=== PATIENT | male | born 1960 | race Caucasian/White ===

== ENCOUNTER 2021-10-09 10:00 | Inpatient (IN) | payer SELFPAY ==
[2021-10-09] MEDS ORDERED: Iopamidol-370 76% 500 ML 1 ML ONE (10:03)
[2021-10-09 11:28] LABS: #Lymphocytes 1.5 thou/uL (1.20-3.40); #Monocytes 0.7 thou/uL (0.11-0.59); #Neutrophils 8.9 thou/uL (1.40-6.50); %Basophils 0.4 % (0.0-1.0); %Eosinophils 0.4 % (0.0-10.0); %Lymphocytes 12.9 % (21.0-51.0); %Monocytes 6.5 % (0.0-10.0); %Neutrophils 79.8 % (42.0-75.0); Hemoglobin 12.5 g/dL (14.0-18.0); Mean Corpuscular HGB CONC 33.2 g/dL (32.0-36.0); Mean Corpuscular Hemoglobin 30.9 pg (27.0-31.0); Mean Corpuscular Volume 93.1 fL (78.0-98.0); Mean Platelet Volume 7.5 fL (7.4-10.4); Platelet Count 294 thou/uL (130-400); RBC Distribution Width 11.9 % (11.5-14.5); Red Blood Cell (RBC) Count 4.04 mill/uL (4.70-6.10); White Blood Cell (WBC) Count 11.2 thou/uL (4.8-10.8)
[2021-10-09 11:54] LABS: ALT (SGPT) 13 U/L (8-55); AST (SGOT) 15 U/L (5-34); Albumin 4.2 g/dL (3.4-4.8); Alkaline Phosphatase 81 U/L (40-110); Anion Gap 12 mmol/L (10-20); BUN (Urea Nitrogen) 14 mg/dL (8.4-25.7); Bilirubin, Total 0.4 mg/dL (0.2-1.2); Calc. Creatinine Clearance 0 mL/min (70-130); Calcium 8.9 mg/dL (7.8-10.44); Carbon Dioxide 25 mmol/L (23-31); Chloride 103 mmol/L (98-107); Globulin 3.7 g/dL (2.4-3.5); Glucose 164 mg/dL (80-115); Lipase 12 U/L (8-78); Potassium 5.2 mmol/L (3.5-5.1); Protein, Total 7.9 g/dL (5.8-8.1); Sodium 135 mmol/L (136-145)
[2021-10-09 12:57] LABS: Bacteria/HPF None Seen HPF (None Seen); Bilirubin Negative (Negative); Blood, Urine Negative (Negative); Clarity Clear (Clear); Glucose, Urine (Dipstick) 200 mg/dL (Negative); Ketone, Urine Negative (Negative); Leukocyte Negative Leu/uL (Negative); Nitrite Negative (Negative); Protein, Urine (Dipstick) 30 mg/dL (Neg-Trace); RBC/HPF None Seen HPF (0-3); Specific Gravity, Urine 1.018 (1.002-1.036); Squamous Epithelial None Seen HPF (0-3); Urobilinogen Normal mg/dL (Less than 2); WBC/HPF 0-3 HPF (0-3)
[2021-10-09] MEDS ORDERED: Aspirin 325 MG TAB ONE ×2 (13:47→13:49)
[2021-10-09] MEDS ORDERED: Ondansetron ODT 4 MG TAB PO PRN (15:07)
[2021-10-09] MEDS ORDERED: Acetaminophen 325 MG TAB PO PRN (15:07)
[2021-10-09] MEDS ORDERED: Nitroglycerin 0.4 MG TAB (25 Tab Bottle) SL PRN (15:07)
[2021-10-09 15:20] LABS: Troponin I 0.015 ng/mL (< 0.028)
[2021-10-09 15:30] LABS: Hemoglobin A1c 6.5 % (4.0-6.0)
[2021-10-09 16:03] VITALS: BMI 40.4
[2021-10-09 18:03] LABS: Troponin I 0.011 ng/mL (< 0.028)
[2021-10-09] MEDS: ALPRAZolam 1 MG TAB PO SCH (20:18)
[2021-10-09] MEDS ORDERED: Carvedilol 6.25 MG TAB PO SCH (21:00)
[2021-10-10 05:39] LABS: #Basophils 0.1 thou/uL (0.0-0.2); #Eosinphils 0.1 thou/uL (0.0-0.7); #Lymphocytes 1.8 thou/uL (1.20-3.40); #Monocytes 0.7 thou/uL (0.11-0.59); #Neutrophils 4.3 thou/uL (1.40-6.50); %Basophils 0.7 % (0.0-1.0); %Eosinophils 1.8 % (0.0-10.0); %Lymphocytes 25.8 % (21.0-51.0); %Neutrophils 61.6 % (42.0-75.0); Hemoglobin 10.8 g/dL (14.0-18.0); Mean Corpuscular HGB CONC 33.3 g/dL (32.0-36.0); Mean Platelet Volume 7.3 fL (7.4-10.4); Platelet Count 209 thou/uL (130-400); RBC Distribution Width 11.9 % (11.5-14.5)
[2021-10-10 05:55] LABS: Anion Gap 10 mmol/L (10-20); BUN (Urea Nitrogen) 17 mg/dL (8.4-25.7); Calc. Creatinine Clearance 124 mL/min (70-130); Calcium 9.2 mg/dL (7.8-10.44); Carbon Dioxide 26 mmol/L (23-31); Chloride 104 mmol/L (98-107); Cholesterol 155 mg/dl (< 200 Desired); Glucose 142 mg/dL (80-115); HDL Cholesterol 39 mg/dL (>60 Neg Risk); LDL Cholesterol, Calculated 78 mg/dL; Potassium 4.5 mmol/L (3.5-5.1); Sodium 135 mmol/L (136-145); Triglycerides 192 mg/dL (Less than 150)
[2021-10-10] MEDS ORDERED: Aspirin Chewable 81 MG TAB PO SCH (09:00)
[2021-10-10] MEDS ORDERED: Carvedilol 6.25 MG TAB PO SCH (09:00)
[2021-10-10] MEDS: ALPRAZolam 1 MG TAB PO SCH ×2 (10:25→19:38)
[2021-10-10] MEDS: Aspirin 81 mg Enteric Coated Tablet PO SCH (10:25)
[2021-10-10] MEDS: Atorvastatin Calcium 40 MG TAB PO SCH (10:26)
[2021-10-10] MEDS: Lisinopril 20 MG TAB PO SCH (10:26)
[2021-10-10] MEDS: traMADol HCl 50 MG TAB PO SCH (10:26)
[2021-10-10] MEDS ORDERED: Regadenoson 0.4 MG/5 ML SYRINGE ONE (12:24)
[2021-10-10 12:31] LABS: SARS-CoV-2 PCR by NAA Not Detected (NotDetected)
[2021-10-11] MEDS: traMADol HCl 50 MG TAB PO SCH (07:42)
[2021-10-11] MEDS: ALPRAZolam 1 MG TAB PO SCH (07:42)
[2021-10-11] MEDS: Lisinopril 20 MG TAB PO SCH (07:43)
[2021-10-11] MEDS: Aspirin 81 mg Enteric Coated Tablet PO SCH (07:43)
[2021-10-11] MEDS: Atorvastatin Calcium 40 MG TAB PO SCH (07:43)
[2021-10-11] MEDS ORDERED: Carvedilol 6.25 MG TAB PO SCH (08:00)
[2021-10-11 12:08] VITALS: BP 119/69; TEMP 97.8
[2021-10-12] MEDS ORDERED: FLU VACC QS2021-22(6MOS UP)/PF 60 MCG/0.5 ML SYRINGE IM ONE (16:45)
== END 2021-10-11 14:26 | disposition home or self-care (01) | DRG 313 ==
LOC: ERS 10:00 → 2SW 14:21 → OBSVTOIN 10-10 13:14
PROVIDERS: ADMIT Internal Medicine; ATTEND Internal Medicine
DX: R07.89 Other chest pain (principal); Z20.822 Contact with and (suspected) exposure to COVID-19; I25.10 Atherosclerotic heart disease of native coronary artery without angina pectoris; E78.5 Hyperlipidemia, unspecified; G89.29 Other chronic pain; M54.9 Dorsalgia, unspecified; F41.9 Anxiety disorder, unspecified; G47.33 Obstructive sleep apnea (adult) (pediatric); Z95.1 Presence of aortocoronary bypass graft; I25.2 Old myocardial infarction; Z79.899 Other long term (current) drug therapy; Z79.82 Long term (current) use of aspirin; Z87.891 Personal history of nicotine dependence
CPT/HCPCS: 36415; 71045; 71275; 78452; 80048; 80053; 80061; 81003; 81015; 83036; 83690; 83735; 83880; 84443; 84484; 85025; 93005; 93017; 94760; A9500; G0378; J2785; Q9967; U0003; U0005